=== PATIENT | female | born 1955 ===

== ENCOUNTER → 2018-09-04 | Outpatient (REF) | payer OTHER ==
[2018-09-08 10:22] LABS: HPV LOW VOL RFLX Negative (Negative)
== END ==
LOC: M LAB LCGH 11:53
PROVIDERS: ATTEND Nurse Practitioner Adult Health
DX: Z12.4 Encounter for screening for malignant neoplasm of cervix (principal); N95.2 Postmenopausal atrophic vaginitis
CPT/HCPCS: 87624; G0123